=== PATIENT | male | born 1965 | race Hispanic/Latino ===

== ENCOUNTER → 2022-03-17 | Emergency (ER) | payer OTHER, MEDICARE ==
[~2022-03-17] MED LIST: IBUP-1493 PO; KETOROLAC 30MG VIAL (30MG/ML) IM ONE
[2022-03-18 00:05] VITALS: BP 134/65
== END ==
LOC: EDH 22:57
DX: S80.01XA Contusion of right knee, initial encounter (principal); X58.XXXA Exposure to other specified factors, initial encounter; Z79.1 Long term (current) use of non-steroidal anti-inflammatories (NSAID); Y93.89 Activity, other specified; Y92.89 Other specified places as the place of occurrence of the external cause; Y99.8 Other external cause status
CPT/HCPCS: 99285; 29505; 73562; J1885